=== PATIENT | male | born 1945 | race Caucasian/White ===

== ENCOUNTER → 2021-08-27 | Outpatient (CLI) | payer MEDICARE ==
[~2021-08-27] MED LIST: ASPIRIN EC81 MG PO; ATORVASTATIN CA80 MG PO; CARVEDILOL12.5 MG PO; DAILY VALUE1 EACH PO; ELIQUIS 5 MG TAB5 MG PO; FUROSEMIDE20 MG PO; LISINOPRIL20 MG PO; NITROSTAT0.4 MG SL; PROTONIX 40 MG40 M1 PO; SPIRONOLACTONE25 MG PO; TYLENOL EXTRA500 MG PO; VITAMIN B-121000 MCG PO
== END ==
LOC: US 11:30 → KOH-I 11:30 → US 13:01
DX: N28.1 Cyst of kidney, acquired (principal)

== ENCOUNTER → 2021-11-23 | Outpatient (CLI) | payer MEDICARE | LOC: KOH-I 11:16 | DX: R91.8 Other nonspecific abnormal finding of lung field (principal); R91.1 Solitary pulmonary nodule | CPT/HCPCS: 71250 ==